=== PATIENT | male | born 1990 | race African-American/Black ===

== ENCOUNTER 2017-05-03 01:55 | Emergency (ER) | payer MEDICARE, MEDICAID ==
[~2017-05-03] VITALS: Ht 175.3 cm; Wt 75.0 kg
[2017-05-03 01:57] VITALS: BP 124/82
== END 2017-05-03 02:50 | disposition left against medical advice (07) ==
LOC: ER 01:57
DX: M79.605 Pain in left leg (principal); Z53.21 Procedure and treatment not carried out due to patient leaving prior to being seen by health care provider